=== PATIENT | male | born 1935 ===

== ENCOUNTER → 2023-09-30 11:26 | Outpatient (REF) | payer OTHER, SELFPAY ==
[2023-09-30 11:56] LABS: ALT (SGPT) 16 U/L (0-50); AST (SGOT) 26 U/L (17-59); Albumin 3.6 g/dl (3.5-5.0); Alkaline Phosphatase 69 U/L (38-126); Blood Urea Nitrogen 16 mg/dl (9-20); Calcium 8.9 mg/dl (8.4-10.2); Carbon Dioxide 31 mmol/L (22-30); Chloride 102 mmol/L (98-107); Glucose 139 mg/dl (70-99); HDL Cholesterol 36 mg/dl; LDL Cholesterol, Calculated 86 mg/dl; Potassium 4.1 mmol/L (3.5-5.1); Sodium 140 mmol/L (135-145); Total Bilirubin 1.1 mg/dl (0.2-1.3); Total Cholesterol 152 mg/dl (50-199); Total Protein 5.9 g/dl (6.3-8.2); Triglyceride 152 mg/dl (10-149); Very Low Density Lipoprotein 30 mg/dl (0-30); eGFR > 60.00
== END ==
LOC: OLABPV 11:26
PROVIDERS: ATTENDING PHYSICIAN Nuclear Medicine Nuclear Cardiology
DX: I48.21 Permanent atrial fibrillation (principal); I10 Essential (primary) hypertension; E78.2 Mixed hyperlipidemia; R73.01 Impaired fasting glucose; R68.89 Other general symptoms and signs
CPT/HCPCS: 36415; 80053; 80061

== ENCOUNTER → 2023-10-07 10:36 | Outpatient (REF) | payer OTHER, SELFPAY ==
[2023-10-07 11:27] LABS: ALT (SGPT) 20 U/L (0-50); AST (SGOT) 33 U/L (17-59); Albumin 4.2 g/dl (3.5-5.0); Alkaline Phosphatase 70 U/L (38-126); Blood Urea Nitrogen 16 mg/dl (9-20); Calcium 9.3 mg/dl (8.4-10.2); Carbon Dioxide 29 mmol/L (22-30); Chloride 105 mmol/L (98-107); Glucose 130 mg/dl (70-99); Sodium 140 mmol/L (135-145); Total Bilirubin 1.2 mg/dl (0.2-1.3); eGFR > 60.00
[2023-10-07 12:48] LABS: Glycohemoglobin (HgbA1c) 7.1 % (4.0-5.6)
== END ==
LOC: OLABPV 10:36
PROVIDERS: ATTENDING PHYSICIAN Internal Medicine Geriatric Medicine
DX: R73.01 Impaired fasting glucose (principal)
CPT/HCPCS: 36415; 80053; 83036

== ENCOUNTER 2024-01-09 11:51 | Emergency (ER) | payer OTHER, SELFPAY ==
[2024-01-09 11:54] VITALS: BMI 29.6
[2024-01-09 11:56] VITALS: BP 140/65
[2024-01-09 12:00] VITALS: BP 147/76
--- NOTE | 2024-01-09 12:01 | ED.GENMED ---
History of Present Illness
General
Chief Complaint: Fainting/Passed Out
Time Seen by Provider: 01/09/24 11:53
History of Present Illness
History of Present Illness:
89-year-old male with history of A-fib on warfarin presents to the emergency department for evaluation of a near syncope/syncopal event. He states he was hoping to hang pictures on the wall when he began to feel dizzy and lightheaded, EMS was
called as the patient appeared near syncopal. On arrival EMS noted the patient was profoundly bradycardic in the 40s and hypotensive and administered him atropine. He apparently had a syncopal event that was witnessed after atropine administration
however vital signs improved. On arrival the patient is alert and oriented with mildly slurred speech that he attributes to dry mouth. States that he feels fatigued and lightheaded but denies any chest pain or shortness of breath. Denies any
recent black or bloody stools.
Review of Systems
Review of Systems
Allergies reviewed?: Yes
All Other Systems: ROS reviewed and negative except as documented in HPI and ROS
Phy Exam
Physical Exam
Physical Exam:
GEN: Pale, ill-appearing, no distress
Eyes: PERRLA, EOMs intact, no scleral icterus
HENT: NCAT, oral mucosa dry
Lungs: CTAB, no wheezes, rales, rhonchi, normal chest wall excursion
Cardiac: Irregular rhythm, controlled rate, no murmurs
Abdomen: S, NT, ND, NABS, no masses or hepatosplenomegaly
Neuro: AO x 3
MSK: No gross deformity or ecchymosis. No edema. No digital clubbing
Skin: No rashes, petechiae. Normal color, no pallor or jaundice.
Psych: Calm, cooperative, proper hygiene
Course
Orders/Labs/Results
Orders:
Orders
01/09/24 12:00
Electrocardiogram (*1) Urgent
Reason for Study: Bradycardia / Tachycardia
EKG- Treatment ONCE
01/09/24 12:03
Type+Screen Urgent
Complete Blood Count/With Diff Urgent
Prothrombin Time Urgent
01/09/24 14:29
Comprehensive Metabolic Panel Urgent
Troponin I Urgent
Abnormal Lab Results
01/09/24 01/09/24
12:03 14:29
WBC 4.5 L 10^3/uL
(4.8-10.8)
RBC 4.14 L 10^6/uL
(4.70-6.10)
Hct 38.5 L %
(39.0-52.0)
MCH 31.9 H pg
(27.0-31.0)
Plt Count 112 L 10^3/uL
(130-400)
Absolute Lymphs (auto) 1.1 L 10^3/uL
(1.2-3.4)
PT 29.3 H Sec
(11.4-14.6)
Glucose 135 H mg/dl
(70-99)
01/09/24 12:03
01/09/24 14:29
Vital Signs
Initial and Last Documented VS:
Initial Vital Signs
Temp Pulse Resp BP Pulse Ox
97.8 F 88 16 140/65 96
01/09/24 11:56 01/09/24 11:56 01/09/24 11:56 01/09/24 11:56 01/09/24 11:56
Last Documented Vital Signs
Temp Pulse Resp BP Pulse Ox
97.8 F 82 16 121/84 96
01/09/24 11:56 01/09/24 15:28 01/09/24 15:28 01/09/24 15:28 01/09/24 15:28
MDM/Problems Addressed
MDM/Problems Addressed:
This is likely a vasovagal near syncopal event evidenced by transient low heart rate and BP. Syncopal event occurred after Administration of atropine prehospital. Was somewhat somnolent on arrival however improved gradually throughout emergency
department stay. Workup was grossly unremarkable. No events on telemetry Stable for discharge home
*Critical Care Note
Total Time (30-74mins, 75-104mins- exclusive of procedures): Not Applicable
Update Note
Update Note:
Prehospital rhythm strips reviewed showing slow atrial fibrillation in the low 50s pre after pain with a normal rhythm but remained in A-fib post atropine
ED Attending Note
-
Portions of this chart may have been created with voice recognition software.� Occasional wrong word or��sound alike� substitutions may have occurred due to the inherent limitations of voice recognition software.
Discharge Plan
Departure
Patient Disposition: Home (Routine Discharge)
Date of Disposition: 01/09/24
Time of Disposition: 15:16
Patient with high blood pressure during this ER visit?: No
Discharge Problem:
Vasovagal near syncope
Instructions: Vasovagal Response (DC)
Prescriptions:
No Action
multivitamin Tablet
1 tab PO DAILY
ascorbic acid (vitamin C) [Vitamin C] 1,000 mg Tablet
1,000 mg PO DAILY
atorvastatin 10 mg tablet
10 mg PO TU
metoprolol succinate 100 mg Tablet Extended Release 24 Hr
150 mg PO DAILY
warfarin 5 mg tablet
5 mg PO SUMOWETHFRSA
warfarin 5 mg tablet
2.5 mg PO TU
glucosamine-chondroitin [Osteo Bi-Flex] 250-200 mg Tablet
1 tab PO DAILY
cholecalciferol (vitamin D3) [Vitamin D3] 25 mcg (1,000 unit) Tablet
25 mcg PO DAILY
vitamin E (dl, acetate) 180 mg (400 unit) Capsule
180 mg PO DAILY
Prevagen capsule
1 cap PO DAILY
Referrals:
Shilo Najera MD [Family Provider] -
Interventions
Interventions:
*Risk Screen - Suicide Last Done: 01/09/24 12:10
*General Assessment Last Done: 01/09/24 12:10
*Neglect/Abuse Screening Last Done: 01/09/24 12:10
ED- Fall Risk Assessment Last Done: 01/09/24 15:29
*ED COVID-19 Vaccine History Last Done: 01/09/24 12:02
*Nursing Disposition Last Done: 01/09/24 15:29
ED- Cardiac Assessment Last Done: 01/09/24 12:10
ED- Neurological Assessment Last Done: 01/09/24 12:10
Discharge Date and Time
Discharge Date/Time: 01/09/24 15:34
Print Language: KOREAN
[2024-01-09 12:25] LABS: % Basophils 0.4 % (0-2); % Eosinophils 1.1 % (0-6); % Immature Granulocytes 0.2 % (0-0.5); % Lymphocytes 25.2 % (20.5-51.1); % Monocytes 8.9 % (1.7-9.3); % Neutrophils 64.2 % (42.2-75.2); Absolute Eosinophils 0.1 10^3/uL (0-0.7); Absolute Lymphocytes 1.1 10^3/uL (1.2-3.4); Absolute Monocytes 0.4 10^3/uL (0.1-0.6); Absolute Neutrophils 2.9 10^3/uL (1.4-6.5); Hematocrit 38.5 % (39.0-52.0); Hemoglobin 13.2 g/dL (13.0-18.0); Mean Corp Hgb Conc. 34.3 g/dL (33.0-37.0); Mean Corpuscular Hgb 31.9 pg (27.0-31.0); Mean Platelet Volume 9.1 fL (7.4-10.4); Nucleated Red Blood Cells % 0 % (-); Platelet Count 112 10^3/uL (130-400); Red Blood Cell Count 4.14 10^6/uL (4.70-6.10); White Blood Cell Count 4.5 10^3/uL (4.8-10.8)
[2024-01-09 12:36] LABS: INR 2.78; PT 29.3 Sec (11.4-14.6)
[2024-01-09 13:00] VITALS: BP 129/85
[2024-01-09 14:00] VITALS: BP 145/72
[2024-01-09 14:49] LABS: ALT (SGPT) 16 U/L (0-50); AST (SGOT) 25 U/L (17-59); Albumin 3.9 g/dl (3.5-5.0); Alkaline Phosphatase 64 U/L (38-126); Blood Urea Nitrogen 16 mg/dl (9-20); Calcium 8.8 mg/dl (8.4-10.2); Carbon Dioxide 28 mmol/L (22-30); Chloride 104 mmol/L (98-107); Estimated Creatinine Clearance 74 ml/min; Glucose 135 mg/dl (70-99); Potassium 4.2 mmol/L (3.5-5.1); Sodium 138 mmol/L (135-145); Total Bilirubin 1.1 mg/dl (0.2-1.3); Total Protein 6.4 g/dl (6.3-8.2); eGFR > 60.00
[2024-01-09 15:00] LABS: Troponin I < 0.012 ng/ml
[2024-01-09 15:28] VITALS: BP 121/84
== END 2024-01-09 15:34 | disposition home or self-care (01) ==
LOC: EMR 11:51
PROVIDERS: Physician Assistant; EMERGENCY PHYSICIAN Emergency Medicine; FAMILY PHYSICIAN Internal Medicine Geriatric Medicine; REFERRING PHYSICIAN Nuclear Medicine Nuclear Cardiology
DX: R55 Syncope and collapse (principal); I48.91 Unspecified atrial fibrillation; Z79.01 Long term (current) use of anticoagulants
CPT/HCPCS: 99284; 80053; 84484; 85025; 85610; 86850; 86900; 86901; 93005

== ENCOUNTER → 2024-08-19 12:28 | Outpatient (REF) | payer OTHER, SELFPAY | LOC: RCS 12:28 | PROVIDERS: ATTENDING PHYSICIAN Nuclear Medicine Nuclear Cardiology; FAMILY PHYSICIAN Internal Medicine Geriatric Medicine | DX: I34.0 Nonrheumatic mitral (valve) insufficiency (principal) | CPT/HCPCS: 93306 ==

== ENCOUNTER → 2024-10-11 11:00 | Outpatient (REF) | payer OTHER, SELFPAY ==
[2024-10-11 11:55] LABS: Hematocrit 37.8 % (39.0-52.0); Hemoglobin 13.4 g/dL (13.0-18.0); Mean Corp Hgb Conc. 35.4 g/dL (33.0-37.0); Mean Corpuscular Hgb 32.5 pg (27.0-31.0); Mean Corpuscular Volume 91.7 fL (80.0-94.0); Mean Platelet Volume 9.6 fL (7.4-10.4); Platelet Count 114 10^3/uL (130-400); Red Blood Cell Count 4.12 10^6/uL (4.70-6.10)
[2024-10-11 12:18] LABS: Vitamin D, 25-OH*** 67.2 ng/mL (30-80)
[2024-10-11 12:58] LABS: ALT (SGPT) 17 U/L (0-50); AST (SGOT) 29 U/L (17-59); Albumin 3.6 g/dl (3.5-5.0); Alkaline Phosphatase 64 U/L (38-126); Blood Urea Nitrogen 17 mg/dl (9-20); Calcium 8.9 mg/dl (8.4-10.2); Glucose 152 mg/dl (70-99); HDL Cholesterol 34 mg/dl; LDL Cholesterol, Calculated 89 mg/dl; Potassium 4.3 mmol/L (3.5-5.1); Total Bilirubin 1.2 mg/dl (0.2-1.3); Total Cholesterol 158 mg/dl (50-199); Triglyceride 179 mg/dl (10-149); Very Low Density Lipoprotein 35 mg/dl (0-30); eGFR > 60.00
[2024-10-11 13:15] LABS: Chloride 104 mmol/L (98-107); Sodium 138 mmol/L (135-145)
[2024-10-11 13:16] LABS: Carbon Dioxide 24 mmol/L (22-30)
[2024-10-11 13:38] LABS: Glycohemoglobin (HgbA1c) 7.1 % (4.0-5.6)
== END ==
LOC: OLABPV 11:00
PROVIDERS: ATTENDING PHYSICIAN Internal Medicine Geriatric Medicine
DX: E78.2 Mixed hyperlipidemia (principal); I10 Essential (primary) hypertension; E55.9 Vitamin D deficiency, unspecified; R73.01 Impaired fasting glucose; I48.91 Unspecified atrial fibrillation; R55 Syncope and collapse
CPT/HCPCS: 36415; 80053; 80061; 82306; 83036; 85027

== ENCOUNTER → 2024-10-12 15:42 | Outpatient (REF) | payer OTHER, SELFPAY ==
[2024-10-12 17:08] LABS: Urine Albumin 1+ (Neg - Trace); Urine Bilirubin Negative (Negative); Urine Character Clear (Clear); Urine Color Yellow; Urine Glucose 2+ (Negative); Urine Ketone Negative (Negative); Urine Leukocyte Negative (Negative); Urine Nitrite Negative (Negative); Urine Occult Blood Negative (Negative); Urine Urobilinogen Negative (Neg - 1+)
[2024-10-12 17:25] LABS: Urine Red Blood Cell 0-2 /HPF (0-2); Urine White Cell 0-2 /HPF (0-5)
[2024-10-12 17:26] LABS: Urine Calcium Oxalate Crystals Present
== END ==
LOC: OLABPV 15:42
PROVIDERS: ATTENDING PHYSICIAN Internal Medicine Geriatric Medicine
DX: I10 Essential (primary) hypertension (principal); E78.2 Mixed hyperlipidemia; E55.9 Vitamin D deficiency, unspecified; R73.01 Impaired fasting glucose; I48.91 Unspecified atrial fibrillation; R55 Syncope and collapse
CPT/HCPCS: 81003; 81015

== ENCOUNTER → 2025-04-06 12:37 | Outpatient (REF) | payer OTHER, SELFPAY | LOC: RCS 12:37 | PROVIDERS: ATTENDING PHYSICIAN Nuclear Medicine Nuclear Cardiology; FAMILY PHYSICIAN Internal Medicine Geriatric Medicine | DX: I48.21 Permanent atrial fibrillation (principal); I34.0 Nonrheumatic mitral (valve) insufficiency; I35.0 Nonrheumatic aortic (valve) stenosis | CPT/HCPCS: 93306 ==

== ENCOUNTER → 2025-06-12 13:07 | Outpatient (REF) | payer OTHER, SELFPAY | LOC: RAD 13:07 | PROVIDERS: ATTENDING PHYSICIAN Internal Medicine Geriatric Medicine | DX: Z00.00 Encounter for general adult medical examination without abnormal findings (principal); I48.91 Unspecified atrial fibrillation; E78.2 Mixed hyperlipidemia; I10 Essential (primary) hypertension; E55.9 Vitamin D deficiency, unspecified; R73.01 Impaired fasting glucose; R55 Syncope and collapse; Z13.89 Encounter for screening for other disorder; M54.50 Low back pain, unspecified | CPT/HCPCS: 72110 ==

== ENCOUNTER → 2025-07-18 10:14 | Outpatient (REF) | payer OTHER, SELFPAY ==
[2025-07-18 11:18] LABS: INR 3.05; PT 31.8 Sec (11.4-14.6)
== END ==
LOC: OLABPV 10:14
PROVIDERS: ATTENDING PHYSICIAN Nuclear Medicine Nuclear Cardiology
DX: Z79.01 Long term (current) use of anticoagulants (principal)
CPT/HCPCS: 36415; 85610

== ENCOUNTER → 2025-07-25 10:04 | Outpatient (REF) | payer OTHER, SELFPAY ==
[2025-07-25 11:18] LABS: Hematocrit 38.0 % (39.0-52.0); Hemoglobin 13.4 g/dL (13.0-18.0); Mean Corp Hgb Conc. 35.3 g/dL (33.0-37.0); Mean Corpuscular Volume 92.9 fL (80.0-94.0); Nucleated Red Blood Cells % 0 % (-); Platelet Count 114 10^3/uL (130-400); Red Cell Dist. Width 12.6 % (11.5-14.5)
[2025-07-25 11:25] LABS: ALT (SGPT) 17 U/L (0-50); AST (SGOT) 23 U/L (17-59); Albumin 4.0 g/dl (3.5-5.0); Alkaline Phosphatase 60 U/L (38-126); Blood Urea Nitrogen 13 mg/dl (9-20); Calcium 9.0 mg/dl (8.4-10.2); Carbon Dioxide 29 mmol/L (22-30); Chloride 104 mmol/L (98-107); Glucose 141 mg/dl (70-99); HDL Cholesterol 31 mg/dl; LDL Cholesterol, Calculated 85 mg/dl; Potassium 4.1 mmol/L (3.5-5.1); Sodium 138 mmol/L (135-145); Total Protein 6.7 g/dl (6.3-8.2); Very Low Density Lipoprotein 26 mg/dl (0-30); eGFR > 60.00
[2025-07-25 11:39] LABS: Vitamin D, 25-OH*** 79.5 ng/mL (30-80)
[2025-07-25 11:51] LABS: Urine Character Clear (Clear)
[2025-07-25 12:10] LABS: Glycohemoglobin (HgbA1c) 7.8 % (4.0-5.9)
== END ==
LOC: OLABPV 10:04
PROVIDERS: ATTENDING PHYSICIAN Internal Medicine Geriatric Medicine
DX: I48.91 Unspecified atrial fibrillation (principal); E78.2 Mixed hyperlipidemia; I10 Essential (primary) hypertension; E55.9 Vitamin D deficiency, unspecified; R73.01 Impaired fasting glucose; R55 Syncope and collapse; Z13.89 Encounter for screening for other disorder; M54.50 Low back pain, unspecified; E66.3 Overweight; E11.9 Type 2 diabetes mellitus without complications
CPT/HCPCS: 36415; 80053; 80061; 81003; 82306; 82550; 83036; 85025